=== PATIENT | male | born 1985 | race Caucasian/White ===

== ENCOUNTER 2016-08-24 13:39 | Emergency (ER) | payer OTHER ==
[~2016-08-24] VITALS: Ht 180.3 cm; Wt 72.6 kg
[2016-08-24 13:52] VITALS: BP 124/78
[2016-08-24] MEDS ORDERED: ALPRAZOLAM1 M2 PO (14:30)
[2016-08-24] MEDS ORDERED: GABAPENTIN300 M2 PO (14:32)
--- NOTE | 2016-08-24 14:41 | ED PSYCHIATRIC COMPLAINT ---
History of Present Illness General Chief Complaint: ETOH/Drug Related Complaint Stated Complaint: LOOKING FOR DETOX Source: patient, family Exam Limitations: no limitations Vital Signs & Intake/Output Vital Signs & Intake/Output Vital Signs Date Time Temp Pulse Resp B/P Pulse O2 O2 Flow FiO2 Ox Delivery Rate 08/24 1352 98.6 75 18 124/78 99 Room Air Allergies Coded Allergies: NO KNOWN ALLERGIES (03/28/12) Reconcile Medications Alprazolam 1 MG TABLET 1 TAB PO BID ANXIETY (Reported) Clonidine HCl 0.1 MG TABLET 1 TAB PO BID PRN anxiety Gabapentin 300 MG CAPSULE 3 CAP PO BID NERVE PAIN/MENTAL HEALTH (Reported) Triage Note: SENT BY [facility] FOR DETOX OFF OPIATES AND BENZODIAZEPINES. DENIES OTHER DRUG OR ALCOHOL USES. DENIES SI OR HI. Triage Nurses Notes Reviewed? yes Onset: Gradual Duration: worse persistent since (3 months) Timing: recent history Severity: moderate Severity Numbers: 8 HPI: Patient reports that he has a history of anxiety, currently prescribed benzos. He takes 1 tablet twice a day. He reports over the past 3 months that he's been using opiates and heroin almost every day. He uses "one bag" a day. Denies any alcohol abuse. Denies any other drugs. Patient reports that he was told by his [place] customs and border officer that he should detox off of the opiates and benzos. No history of seizures from not taking benzos. He reports that sometimes he doesn' t take it for several days. He does not use opiates or benzos he feels like he gets "a cold". He gets congested, achy, sometimes develops abdominal discomfort. His last use of any drugs was yesterday afternoon. He reports he used one bag of heroin, IV injection, and took his 1 mg of alprazolam. Denies any current abdominal pain nausea vomiting fevers or chills chest pain or shortness of breath. Denies Hallucinations. Denies any suicidal or homicidal ideation. (OCTAVIA DOE,DECLAN) Past History Travel History Traveled to [place] past 21 day No Medical History Any Pertinent Medical History? see below for history Neurological: NONE EENT: NONE Cardiovascular: NONE Respiratory: NONE Gastrointestinal: NONE Hepatic: NONE Renal: NONE Musculoskeletal: NONE Psychiatric: NONE Endocrine: NONE Surgical History Surgical History: non-contributory Psychosocial History What is your primary language [place] Tobacco Use: Current Daily Use Daily Tobacco Use Amount/Type: => 5 Cigarettes daily ETOH Use: denies use Family History Hx Contributory? No (DECLAN WONG) Review of Systems Review of Systems Constitutional: Reports: no symptoms. Comments Review of systems: See HPI, All other systems negative. Constitutional, no chills fever or weight loss HEENT: No visual changes no sore throat no congestion Cardiovascular: No chest pain , no palpitations Skin, no jaundice no rashes Respiratory: No dyspnea cough sputum or hemoptysis GI: No nausea no vomiting : No dysuria No hematuria Muscle skeletal: no back pain, no neck pain, Neurologic: No numbness no confusion Psych: Positive stress, anxiety Immunology: No splenectomy or history of AIDS (DECLAN WONG) Physical Exam Physical Exam General Appearance: well developed/nourished, no apparent distress, alert, awake , comfortable Neurological/Psychiatric: oriented x 3 Comments: Well-developed well-nourished person in no acute distress HEENT: extraocular motion intact, no nystagmus. Pupils equally round and reactive to light and accommodation. Nose is atraumatic. External auditory canal and Tympanic membranes clear. Pharynx normal. No swelling or edema. Conjunctivae are slightly injected bilaterally. Neck: Normal inspection Back: Nontender Cardiovascular: Regular rate and rhythms no murmurs rubs or gallops, normal JVP Respiratory: No respiratory distress.breath sounds clear to auscultation bilaterally Extremity: No edema Neuro: Alert oriented x3 Skin: No appreciable rash on exposed skin, skin is warm and dry. Psych: Mood and affect is normal, memory and judgment is normal.calm, cooperative. SAD PERSONS Done? patient not suicidal (DECLAN WONG) Progress Differential Diagnosis: polysubstance abuse, intoxication, Penza abuse, opiate abuse Plan of Care: Orders Procedure Date/time Status URINE DRUG SCREEN FOR ER ONLY 08/24 141 Complete URINALYSIS 08/24 141 Complete Laboratory Tests 08/24/16 1435: Urine Opiates Screen > 4000.00 H, Methadone Screen < 40, Barbiturate Screen < 60, Ur Phencyclidine Scrn < 6.00, Amphetamines Screen < 100, U Benzodiazepines Scrn > 800 H, Urine Cocaine Screen 211, Urine Cannabis Screen 43.10, Urine Color YEL, Urine Clarity CLEAR, Urine pH 6.5, Ur Specific [place]obbins 1.020, Urine Protein TRACE H, Urine Ketones NEG, Urine Nitrite NEG, Urine Bilirubin NEG, Urine Urobilinogen 0.2, Ur Leukocyte Esterase NEG, Ur Microscopic SEDIMENT EXAMINED, Urine RBC RARE, Urine WBC RARE, Urine Hemoglobin NEG, Urine Glucose NEG 08/24/16 1416: CBC w Diff Cancelled, WBC Cancelled, RBC Cancelled, Hgb Cancelled, Hct Cancelled , MCV Cancelled, MCH Cancelled, RDW Cancelled, Plt Count Cancelled, MPV Cancelled, PUBS MCHC Cancelled, Serum Alcohol Cancelled Comments: 08/24/2016 3:10:17 PM on arrival patient is no acute distress, denies any suicidal or homicidal ideation. Patient presenting with mom. Looking for detox. Patient has no history of withdrawal seizures from not taking benzos. Vitals are stable and patient has not taken any medications of the past 24 hours. Patient will be referred to other facilities that offer inpatient and outpatient treatment. Offered clonidine. Patient told to return for any suicidal or homicidal ideation worsening symptoms or concerns. Discussed with Dr. hardy and he agrees to plan. (DECLAN WONG) Departure Departure Time of Disposition: 1500 Disposition: HOME OR SELF CARE Condition: Stable Clinical Impression Primary Impression: Polysubstance abuse Referrals: REZA MCKEON,SUNG Maza (PCP/Family) Additional Instructions: Your given a copy of outpatient facilities that take your insurance for detox of benzos and opiates. Make sure you call them today . Return for worsening symptoms or concerns. Take clonidine as prescribed for any anxiety. Departure Forms: Customer Survey General Discharge Information Prescriptions: Current Visit Scripts Clonidine HCl 1 TAB PO BID PRN anxiety #12 TAB (DECLAN WONG) PA/RN PHYSICIAN OFFICE Co-Sign Statement Statement: ED Attending supervision documentation- [] I saw and evaluated the patient. I have also reviewed all the pertinent lab results and diagnostic results. I agree with the findings and the plan of care as documented in the PA's/RN PHYSICIAN OFFICE's documentation. x I have reviewed the ED Record and agree with the PA's/RN PHYSICIAN OFFICE's documentation. [] Additions or exceptions (if any) to the PAs/RN PHYSICIAN OFFICE's note and plan are summarized below: [] (NELY MCKEON,BIANCA)
[2016-08-24] MEDS ORDERED: CLONIDINE HCL0.1 MG PO (15:01)
== END 2016-08-24 15:08 ==
LOC: ERH 13:39
DX: F11.10 Opioid abuse, uncomplicated (principal)
CPT/HCPCS: 80307; 81001; G0480